=== PATIENT | female | born 1995 | race Caucasian/White ===

== ENCOUNTER 2019-06-06 13:01 | Outpatient (CLI) | payer OTHER ==
[2019-06-06 13:48] LABS: RUPTURE FETAL MEMBRANES NEGATIVE (NEGATIVE)
== END 2019-06-06 14:11 | disposition home or self-care (01) ==
LOC: OBT 13:01 → L-D 13:02 → OBT 14:11
DX: O47.1 False labor at or after 37 completed weeks of gestation (principal); Z3A.37 37 weeks gestation of pregnancy
CPT/HCPCS: 76818; 84112